=== PATIENT | female | born 1955 | race Caucasian/White ===

== ENCOUNTER 2018-07-04 17:28 | Emergency (ER) | payer OTHER ==
--- NOTE | 2018-07-04 18:09 | ED ---
Lower Extremity - HPI Summary HPI Summary: Patient complains of right foot pain and swelling after falling while exercising yesterday. Denies any other pain, injury or symptoms. Patient ambulatory. - History of Current Complaint Chief Complaint: EDExtremityLower Stated Complaint: RT FOOT INJURY Time Seen by Provider: 07/04/18 17:36 Hx Obtained From: Patient Mechanism Of Injury: Fall From A Standing Position Onset of Pain: Hours Onset/Duration: Still Present Severity Initially: Moderate Severity Currently: Moderate Pain Intensity: 5 Pain Scale Used: 0-10 Numeric Timing: Intermittent Location: Is Discrete @ Character Of Pain: Throbbing Associated Signs And Symptoms: Positive: Swelling Aggravating Factor(s): Standing, Ambulation, Weight Bearing Alleviating Factor(s): Rest Able to Bear Weight: Yes - Allergies/Home Medications Allergies/Adverse Reactions: Allergies Allergy/AdvReac Type Severity Reaction Status Date / Time procaine Allergy Hives Verified 07/04/18 17:32 PMH/Surg Hx/FS Hx/Imm Hx Endocrine/Hematology History: Denies: Hx Diabetes Cardiovascular History: Denies: Hx Hypertension, Hx Pacemaker/ICD History: Denies: Hx Dialysis, Hx Renal Disease Sensory History: Denies: Hx Hearing Aid Neurological History: Denies: Hx CVA Psychiatric History: Denies: Hx Panic Disorder - Cancer History Hx Chemotherapy: No Hx Radiation Therapy: No - Surgical History Surgery Procedure, Year, and Place: 11/2011 ARTHROSCOPIC SURGERY LEFT KNEE- MICROFRACTIONAL SURGERY. 05/2015 REMOVAL VARICOSE VEINS RIGHT LEG - Immunization History Immunizations Up to Date: Yes Infectious Disease History: No Infectious Disease History: Denies: Traveled Outside the US in Last 30 Days - Social History Alcohol Use: Occasionally Substance Use Type: Reports: None Smoking Status (MU): Never Smoked Tobacco Review of Systems Constitutional: Negative Eyes: Negative ENT: Negative Cardiovascular: Negative Respiratory: Negative Gastrointestinal: Negative Genitourinary: Negative Musculoskeletal: Other Skin: Negative Neurological: Negative Psychological: Normal All Other Systems Reviewed And Are Negative: Yes Physical Exam - Summary Physical Exam Summary: Swelling and ecchymosis to dorsal and lateral surface of right foot. Tenderness over lateral foot. No obvious deformity, erythema, extra warmth noted. PMS intact distally Triage Information Reviewed: Yes Vital Signs On Initial Exam: Initial Vitals Temp Pulse Resp BP Pulse Ox 96.8 F 64 17 138/89 98 07/04/18 17:30 07/04/18 17:30 07/04/18 17:30 07/04/18 17:30 07/04/18 17:30 Vital Signs Reviewed: Yes Appearance: Positive: Well-Appearing Skin: Positive: Warm Head/Face: Positive: Normal Head/Face Inspection Eyes: Positive: Normal Neck: Positive: Supple Respiratory/Lung Sounds: Positive: Clear to Auscultation Cardiovascular: Positive: Normal Abdomen Description: Positive: Nontender Musculoskeletal: Positive: Normal Neurological: Positive: Normal Psychiatric: Positive: Normal AVPU Assessment: Alert - Sruthi Coma Scale Best Eye Response: 4 - Spontaneous Best Motor Response: 6 - Obeys Commands Best Verbal Response: 5 - Oriented Coma Scale Total: 15 Diagnostics - Vital Signs Vital Signs Temp Pulse Resp BP Pulse Ox 07/04/18 17:30 96.8 F 64 17 138/89 98 - Laboratory Lab Statement: Any lab studies that have been ordered have been reviewed, and results considered in the medical decision making process. Lower Extremity Course/Dx - Course Course Of Treatment: Patient complains of right foot pain and swelling after falling while exercising yesterday. Denies any other pain, injury or symptoms. Patient ambulatory. Physical exam:Swelling and ecchymosis to dorsal and lateral surface of right foot. Tenderness over lateral foot. No obvious deformity, erythema, extra warmth noted. PMS intact distally. X-ray positive for fifth metatarsal shaft fracture. Posterior ankle splint placed. Patient has crutches at home. Follow-up with orthopedics. - Diagnoses Provider Diagnoses: Fracture of fifth metatarsal bone Discharge - Sign-Out/Discharge Documenting (check all that apply): Patient Departure - Discharge Plan Condition: Stable Disposition: HOME Patient Education Materials: Foot Fracture in Adults (ED) Referrals: Shital Daniel MD [Primary Care Provider] - Richard Batista MD [Medical Doctor] - Additional Instructions: No weightbearing on right foot. Ice, rest, elevation and ibuprofen for pain. Follow-up with orthopedics Dr. Cullen in 3-5 days. Return to the ED for any new or worsening symptoms - Billing Disposition and Condition Condition: STABLE Disposition: Home
[2018-07-04 18:40] VITALS: BP 120/74
--- NOTE | 2018-07-05 07:34 | RAD ---
HISTORY: fall COMPARISONS: None VIEWS: 6 , Frontal, lateral, and oblique views of the right foot and right ankle FINDINGS: BONE DENSITY: There is diffuse osteopenia. BONES: There is an oblique nondisplaced fracture of the diaphysis of the fifth metatarsal. JOINTS: There is osteoarthritis of the tibiotalar, fibulotalar, and first MTP joints. ALIGNMENT: There is hallux valgus. SOFT TISSUES: Unremarkable. OTHER FINDINGS: None. IMPRESSION: 1. FRACTURE OF THE FIFTH METATARSAL. 2. OSTEOPENIA. 3. OSTEOARTHRITIS. R1
== END 2018-07-04 18:40 | disposition home or self-care (01) ==
LOC: ED 17:28
DX: S92.354A Nondisplaced fracture of fifth metatarsal bone, right foot, initial encounter for closed fracture (principal); W19.XXXA Unspecified fall, initial encounter; Y92.9 Unspecified place or not applicable
CPT/HCPCS: 99282

== ENCOUNTER → 2019-03-24 18:15 | Emergency (ER) | payer OTHER ==
--- OUTSIDE RECORDS SUMMARY | 2019-03-24 18:31 | XMS REPORT | Continuity of Care Document ---
:1955 External Reference #:[id number] Author Name Shital Daniel M.D. Address [address] [facility] [facility] [place] [address] Care Team Providers Name Role Phone Shital Daniel M.D. Care Team Information Event Decorator Unavailable Shital Daniel M.D. Primary Care Physician Unavailable Payers Date Identification Numbers Payment Provider Subscriber Policy Number: [id number] [employer] Group Number: [id number] Group Name: [place] [address] PayID: [id number] Problems Active Problems Provider Date Major depressive disorder Odalis Camarena NP Onset: 12/23/2017 FH myocardial infarction male first degree Shital Daniel M.D. Onset: 2018 age known Impaired fasting glycaemia Shital Daniel M.D. Onset: 12/23/2017 Family History Date Family Member(s) Observation Comments Father due to Diabetes () : (age 46 Years) Father due to MD Mother Diabetes Mellitus, II Mother Breast Cancer First Son Insulin Dependent Diabetes Second Son Anxiety Siblings 6 Social History Type Date Description Comments Sex Unknown Marital Status . Lives With Spouse Diet Healthy, Well Balanced Occupation Insurance Tobacco Use Start: Unknown Never Smoked Cigarettes ETOH Use Rare Recreational Drug Use Denies Drug Use Tobacco Use Start: Unknown Patient has never smoked Smoking Status Reviewed: 03/17/19 Patient has never smoked Exercise Type/Frequency Exercises regularly tries to bicycle 20-30 mi bike; walking; body pump 2-3x Currently Active Patient is currently sexually active Allergies, Adverse Reactions, Alerts Description No Known Drug Allergies Medications Active Medications SIG Qnty Indications Ordering Provider Date Fluoxetine HCL 1 tablets by 90tabs F32.9 Shital Daniel, 11/04/2017 10mg mouth every day M.D. Tablets History Medications Acetaminophen/Codeine 1 po q4h 30tabs S90.122A Tara Celeste, 05/23/2018 - Phosphate prn at [employer] 12/30/2018 300-30mg Tablets night for foot pain No Active Medications Unknown 11/04/2017 - 11/04/2017 Immunizations CPT Code Status Date Vaccine Lot # [id number] Given 12/23/2017 Tdap Tetanus, W Pertussis [id number] Given 11/04/2017 Influenza Vac, Quadrivalent, Slit Virus, Im [id number] Vital Signs Date Vital Result Comment 03/17/2019 4:03pm BP Systolic 120 mmHg BP Diastolic 70 mmHg Heart Rate 68 /min Body Temperature 98.1 F Respiratory Rate 16 /min Height 67 inches 5'7" Weight 202.00 lb BMI (Body Mass Index) 31.6 kg/m2 12/30/2018 12:48pm BP Systolic 122 mmHg BP Diastolic 74 mmHg Heart Rate 70 /min Body Temperature 97.7 F Respiratory Rate 20 /min Weight 199.00 lb 05/23/2018 10:39am BP Systolic 130 mmHg BP Diastolic 70 mmHg Heart Rate 60 /min Body Temperature 98.3 F Respiratory Rate 17 /min Height 67 inches 5'7" Weight 195.25 lb BMI (Body Mass Index) 30.6 kg/m2 12/23/2017 5:33pm BP Systolic 124 mmHg BP Diastolic 70 mmHg Heart Rate 66 /min Body Temperature 98.6 F Respiratory Rate 16 /min Height 67 inches 5'7" Weight 193.06 lb BMI (Body Mass Index) 30.2 kg/m2 11/04/2017 5:59pm BP Systolic 118 mmHg BP Diastolic 80 mmHg Heart Rate 64 /min Body Temperature 98.2 F Respiratory Rate 16 /min Height 67 inches 5'7" Weight 194.00 lb BMI (Body Mass Index) 30.4 kg/m2 Results Test Date Facility Test Result H/L Range Note Laboratory test 01/17/2018 [facility] SEE RESULT 1, 2 finding Interface Order BELOW Laboratory test 12/23/2017 [facility] Cytology Thinprep SEE RESULT 3 finding w/rfx([facility]) BELOW 1 [id number] 2 SEE RESULT BELOW Name: RYANN LR : [address]: Cm Shin MD Acct: [id number] Unit: [id number] AGE: 62 Location: [facility] Re01/17/18 SEX: F Status: DEP REF SPEC: [id number] CHASE: 01/17/18-1117 [facility] DR: Cm Shin MD REQ: [id number] RECD: 01/17/18-1550 STATUS: KRISTEN AL DR: Shital Daniel MD _ ORDERED: LEVEL 4/2 COMMENTS: [id number] FINAL DIAGNOSIS 1. Colon, 30 cm, biopsy: -- Hyperplastic polyp. 2. Colon, 20 cm, biopsy: -- Hyperplastic polyps. CLINICAL HISTORY Screening/Surveillance for malignancy in asymptomatic patient. POST-OPERATIVE DIAGNOSIS Colonoscopy to cecum ? biopsy x1 at 30 cm and x2 at 20 cm; tics; poor sphincter. Conclusions/Plan: 5-10 years GROSS DESCRIPTION 1. The specimen is received in formalin labeled, Colon Polyp Biopsy at 30 cm, and consists of a 0.4 x 0.3 x 0.1 cm newton-pink polypoid soft tissue fragment which is submitted entirely in one cassette. 2. The specimen is received in formalin labeled, Colon Polyps (2) at 20 cm , and consists of two newton-pink irregular soft tissue fragments measuring 0.4 x 0.2 x 0.1 cm and 0.5 by up to 0.3 x 0.1 cm which are submitted entirely in one cassette. Signed (signature on file) Ross Schmitt MD [id number] END OF REPORT DEPARTMENT OF PATHOLOGY, [address] [place] [address] Ross Schmitt M.D. Director [facility] # [id number] 3 SEE RESULT BELOW Name: RYANN LR : [address]: Shital Daniel MD Acct: [id number] Unit: [id number] AGE: 62 Location: [facility] Re12/23/17 SEX: F Status: REG REF SPEC: [id number] CHASE: 12/23/[address]: Shital Daniel MD REQ: [id number] RECD: 12/24/17 STATUS: SOUT _ ORDERED: TP IMAGE ANAL, HPV/Thin Prep, HPV 16/18 GENE COMMENTS: [id number] Negative for Intraepithelial lesion or Malignancy A. Ectocervical/Endocervical Specimen Adequacy: Satisfactory of evaluation Transformation zone component identified Patient Information: HPV: High risk HPV RNA testing regardless of pap results. HPV 16/18 Genotype Reflex Actual Specimen Date: 12/23/17 Spec Date if unknown: 2015 ?: N Post Menopausal?: Y Hysterectomy?: N Previous Abnormal Pap Smears?:N Date Time Test Result Flag (u) Normal Range 12/23/17 1854 @ HPV RNA RFLX GE Negative Negative @ @ The high-risk HPV types detected by the assay include: 16, @ 18, 31, 33, 35, 39, 45, 51, 52, 56, 58, 59, 66, and 68. Signed (signature on file) DENISSE Wang (ASCP) 12/25 6879 This Pap test was evaluated with the assistance of the ThinPrep Test Imaging System. Due to cytologic findings at the personal attendant microscope, comprehensive manual rescreening by a Chip Loft Worker may be required. The Pap Smear is a screening test designed to aid in the detection of premalignant and malignant conditions of the uterine cervix. It is not a diagnostic procedure and should not be used as the sole means of detecting cervical cancer. Both false- positive and false- negative reports do occur. Depending on your risk status, a Pap smear should be obtained and evaluated every 1-3 years. END OF REPORT DEPARTMENT OF PATHOLOGY, [address] [place] [address] Ross Schmitt M.D. Director [facility] # [id number] Procedures Date Code Description Status 01/17/2018 [id number] Colonoscopy Completed 12/04/2017 [id number] Mammogram Completed Encounters Type Date Location Provider Dx Diagnosis Office Visit 12/30/2018 Main Office Liz Wilburn, M25.522 Pain in left elbow 1:00p [employer] Office Visit 05/23/2018 Main Office Tara Alonso, [facility] S90.122A Contusion of left 10:15a lesser toe(s) w/o damage to nail, init W22.09xA Striking against other stationary object, initial encounter Office Visit 12/23/2017 5:30p Main Office Shital Daniel, Z00.00 Encntr for general M.D. adult medical exam w/o abnormal findings F32.9 Major depressive disorder, single episode, unspecified R73.01 Impaired fasting glucose R15.2 Fecal urgency Z23 Encounter for immunization Office Visit 11/04/2017 6:00p Main Office Odalis Chairez F32.9 Major depressive Camarena, [employer] disorder, single episode, unspecified F41.9 Anxiety disorder, unspecified Z12.31 Encntr screen mammogram for malignant neoplasm of breast Z12.11 Encounter for screening for malignant neoplasm of colon Z23 Encounter for immunization Plan of Treatment Future Appointment(s):07/31/2019 8:00 am - Shital Daniel M.D. at [facility]08/11/2019 10:40 am - Shital Daniel M.D. at [facility]03/17/2019 - Shital Daniel M.D.Z00.00 Encounter for general adult medical examination without abnoNew Labs:CBC Electronic-ALL Lab [facility], Ordered: 03/17/19Comp Metabolic-ALL [facility], Ordered: 03/17/19Lipid Panel-ALL [facility], Ordered: 03/17/19TSH (a/[facility]), Ordered: 03/17/19Comments:Encourage an active and healthy lifestyle with proper eating habits including fruits, vegetables, 6-8 glasses of water a day and monitoring portion size. Recommend 30 minutes of daily physical activityincluding walking, aerobic exercise, sports , yoga or dance. Any activity is better than no activity.Recommend routine eye and dental exams. Next physical is due in 1-2 years.E66.9 Obesity, unspecifiedNew Labs:TSH (a/[facility]), Ordered: 03/17/19Hemoglobin A1c (a) , Ordered: 03/17/19Free T4 (a/[facility]), Ordered: 03/17/19Comments:Counseled on heart healthy diet such as Mediterranean diet. Eat protein and vegetables first then carbohydrates last. Get at least 150 minutes of moderate aerobic activity or 75 minutes of vigorous aerobic activity a week, or a combination of moderate and vigorous activity. General goal of 30 minutes of physical activity a day.Follow up:fasting labsF32.9 Major depressive disorder, single episode, unspecifiedComments:increase to 20mg daily, message/call in several weeks for how you are doing and will change prescription then;Reviewed adverse side effects of medication. Advised to call the office if experiencing symptoms. Patient verbalized understanding. Take medication for at least one week as it can take 1 week to build tolerance to side effects of medication. 4-6 weeks for full medication effect. Take medication daily, consider therapy if not already started. Call office right away if symptoms worsen including worsening mood/ anxiety or suicidal ideation. Suicide prevention hot line/Crisis line: 5-199-152 -1358 or 838-720-6472Mqpnnzadv 24 hours a day, 7 days a week . It is free and confidential. https://suicidepreventionlifeline.org/Follow up:call in 1 month with update, see me NOVR73.01 Impaired fasting glucoseComments:Counseled on heart healthy diet and exercise including limiting carbs and portion control and at least 30 minutes of physical activity daily. Consider Mediterranean diet as a guide for healthy eating. A1c> 6.5 is diagnostic of vaaklkdeM97.31 Encounter for screening mammogram for malignant neoplasm ofNew Xrays: Mammography Screening, Bilateral; 2-View Each Breast, Ordered: 03/17/19Comments: refer for [id number] Hypertrophy of breastNew Xrays:Ultrasound Breast Complete Left, Ordered: 03/17/19Comments:asymmetry left due USM85.80 Other specified disorders of bone density and structure, unsComments:1200mg Calcium and vitamin D 1000 units daily with weight bearing exercise refer DEXAI78.1 Nevus, non-neoplasticComments:Dr. Nicole Hernandez [address] [facility], [place] [address] Drs. Holden Izquierdo [address], [place] [phone]. Wendy Pierre [id number] [facility], [place] [address] discussed monitoring for changes in size, color, pain, bleeding or itching to follow up in office or consider dermatology lhuzegcnO69.9 Chest pain, unspecifiedNew Labs:Magnesium ([facility]), Ordered: 03/17/19Comments:possible gerd/stress, try zantax or prilosec over the counter and tums call if symptoms dabaoiM14.0 Primary generalized (osteo) arthritisComments:600mg ibuprofen 3x a day with food as gurbiwT74.49 Family history of ischemic heart disease and other diseases of the circulatory systemComments:father and brother, check labs shlomo, consider baby aspirin dailyAllComments:Medication Management Patient Understands medications she's taking? Yes No Are there Barriers to Adherence? Yes No Has the patient been asked about herbal supplements and therapies, and OTC meds? Yes No
[2019-03-24] MEDS: oxyCODONE/Acetamin 5/325 MG* TAB PO ONE (20:50)
--- NOTE | 2019-03-24 21:09 | ED ---
Lower Extremity - HPI Summary HPI Summary: 63-year-old female presents with left foot injury today. She states that with walking the dog when she slipped and scraped her right knee and twisted her left foot. She has pain over her pinky toe of her left foot. She denies any fracture to the area previously. There is swelling to the area. Is not on blood thinners. No numbness or tingling. - History of Current Complaint Chief Complaint: EDExtremityLower Stated Complaint: FELL ON LEFT FT PER PT Time Seen by Provider: 03/24/19 19:03 Pain Intensity: 3 - Allergies/Home Medications Allergies/Adverse Reactions: Allergies Allergy/AdvReac Type Severity Reaction Status Date / Time procaine Allergy Hives Verified 03/24/19 18:23 PMH/Surg Hx/FS Hx/Imm Hx Endocrine/Hematology History: Denies: Hx Diabetes Cardiovascular History: Denies: Hx Hypertension, Hx Pacemaker/ICD History: Denies: Hx Dialysis, Hx Renal Disease Sensory History: Denies: Hx Hearing Aid Neurological History: Denies: Hx CVA Psychiatric History: Denies: Hx Panic Disorder - Cancer History Hx Chemotherapy: No Hx Radiation Therapy: No - Surgical History Surgery Procedure, Year, and Place: 11/2011 ARTHROSCOPIC SURGERY LEFT KNEE- MICROFRACTIONAL SURGERY. 05/2015 REMOVAL VARICOSE VEINS RIGHT LEG Infectious Disease History: No Infectious Disease History: Denies: Traveled Outside the [place] in Last 30 Days - Family History Known Family History: Positive: Non-Contributory - Social History Alcohol Use: Rare Substance Use Type: Reports: None Smoking Status (MU): Never Smoked Tobacco Review of Systems Negative: Fever Negative: Chest Pain Negative: Shortness Of Breath Positive: Myalgia - left foot pain All Other Systems Reviewed And Are Negative: Yes Physical Exam Triage Information Reviewed: Yes Vital Signs On Initial Exam: Initial Vitals Temp Pulse Resp BP Pulse Ox 97.7 F 73 16 149/92 95 03/24/19 18:21 03/24/19 18:21 03/24/19 18:21 03/24/19 18:21 03/24/19 18:21 Vital Signs Reviewed: Yes Appearance: Positive: Well-Appearing Skin: Positive: Warm, Dry Head/Face: Positive: Normal Head/Face Inspection Eyes: Positive: Normal, Conjunctiva Clear ENT: Positive: Pharynx normal Respiratory/Lung Sounds: Positive: Clear to Auscultation, Breath Sounds Present Cardiovascular: Positive: Normal, RRR Musculoskeletal: Positive: Limited @ - left pinky, Edema Left - 5th metatarsal fracture, Other - capillary refill<2 secs Neurological: Positive: Normal Psychiatric: Positive: Normal Procedures - Splinting foot Location: left foot Hand-Made Type: orthoglass Splint: posterior walking Pre-Proc Neuro Vasc Exam: normal Post-Proc Neuro Vasc Exam: normal Diagnostics - Vital Signs Vital Signs Temp Pulse Resp BP Pulse Ox 03/24/19 18:21 97.7 F 73 16 149/92 95 - Laboratory Lab Statement: Any lab studies that have been ordered have been reviewed, and results considered in the medical decision making process. - Radiology foot Radiology Interpretation Completed By: ED Physician Summary of Radiographic Findings: 5th metatarsal fracture Lower Extremity Course/Dx - Course Course Of Treatment: 63-year-old female presents with left foot injury today. She states that with walking the dog when she slipped and scraped her right knee and twisted her left foot. She has pain over her pinky toe of her left foot. She denies any fracture to the area previously. There is swelling to the area. Is not on blood thinners. No numbness or tingling. on exam tenderness over fifth metatarsal of left foot. Neurovascular intact. X-ray shows fracture fifth metatarsal. Placed posterior walking splint. We'll have follow-up with ortho. Told to ice elevate. Patient has crutches. Patient understands agrees with plan. - Diagnoses Differential Diagnosis/HQI/PQRI: Positive: Contusion, Fracture (Closed), Sprain Provider Diagnoses: Fracture of 5th metatarsal Discharge - Sign-Out/Discharge Documenting (check all that apply): Patient Departure Patient Received Moderate/Deep Sedation with Procedure: No - Discharge Plan Condition: Good Disposition: HOME Patient Education Materials: Foot Fracture in Adults (ED) Referrals: Shital Daniel MD [Primary Care Provider] - Richard Batista MD [Medical Doctor] - Additional Instructions: Use crutches and stay nonweight bearing Keep splint on area and keep dry Call ortho office tomorrow to set up appointment for follow up Use ibuprofen or tyenlol for pain every 6 hours Ice, elevate Return to ED if develop numbness or tingling or any new or worsening symptoms - Billing Disposition and Condition Condition: GOOD Disposition: Home
[2019-03-24 21:20] VITALS: BP 141/80
== END | disposition home or self-care (01) ==
LOC: ED 18:15
DX: S92.352A Displaced fracture of fifth metatarsal bone, left foot, initial encounter for closed fracture (principal); W01.0XXA Fall on same level from slipping, tripping and stumbling without subsequent striking against object, initial encounter; Y93.K1 Activity, walking an animal
CPT/HCPCS: 99281; A9270-GY